=== PATIENT | male | born 1990 | race Caucasian/White ===

== ENCOUNTER 2023-03-11 19:55 | Emergency (ER) | payer OTHER ==
[~2023-03-11] VITALS: Ht 182.9 cm; Wt 113.4 kg
[2023-03-11] MEDS ORDERED: AMOCLA875 PO (21:09)
== END 2023-03-11 21:30 | disposition home or self-care (01) ==
LOC: ER 19:55
DX: K04.7 Periapical abscess without sinus (principal)
CPT/HCPCS: 99282; A9270